=== PATIENT | male | born 1935 | race Caucasian/White ===

== ENCOUNTER 2016-07-25 11:43 | Emergency (ER) | payer MEDICARE, BC ==
[2016-07-25 12:22] LABS: Hematocrit 40.7 % (42.0-52.0); Hemoglobin 13.4 gm/dL (13.5-18.0); Mean Cell Volume 88.3 fl (78-100); Mean Corpuscular Hemoglobin 29.1 pg (27-31); Mean Corpuscular Hgb Conc 32.9 g/dl (32-36); Mean Platelet Volume 10.9 fl (6.0-9.5); Neutrophil # 7.2 K/mm3 (1.3-6.0); Neutrophil % 70.8 % (42-75.0); Platelet Count 196 K/mm3 (150-450); Red Blood Count 4.61 M/mm3 (4.7-6.0); Red Cell Distribution Width 14.8 % (11.5-14.0); White Blood Count 10.1 K/mm3 (4.0-10.5)
[2016-07-25 12:42] LABS: ALT 16 U/L (19-67); AST 16 U/L (0-48); Albumin * 3.3 gm/dl (3.4-5.0); Alkaline Phosphatase * 84 U/L (50-170); Anion Gap 13.7 mmol/L (6.8-13.8); BNP * 645 pg/mL (5-650); Bilirubin, Total 0.7 mg/dL (0.0-1.1); Blood Urea Nitrogen 20 mg/dL (6-23); Ca. Corrected For Albumin 9.1 mg/dL (8.4-10.2); Calcium * 8.9 mg/dL (7.9-10.9); Carbon Dioxide 26.3 mmol/L (24-32.6); Chloride 101 mmol/L (97-106); Glucose * 110 mg/dL (70-110); Sodium 137 mmol/L (132-142)
--- NOTE | 2016-07-25 13:45 | ERNOTE ---
Date of Service: 07/25/16 Time Seen by Provider: 07/25/16 13:43 Stated Complaint: CONGESTION Presenting Symptoms:: cough Source: patient, RN notes reviewed, past records Exam Limitations: no limitations Immunizations: IMMUNIZATION HX Immunizations Up to Date Yes History of Influenza Vaccine More Information Required Allergies/Adverse Reactions: Allergies No Known Allergies Allergy (Unverified 07/25/16 11:56) Home Medications: HOME MEDICATIONS Azithromycin [Zithromax] 250 mg PO DAILY #4 tablet 07/25/16 [Last Taken Unknown] - History of Present Ilness Narrative: Jaquan is a 81-year-old male ambulatory to the emergency department for a cough that began 2 days ago. He reports feeling "congested." She was seen by his primary care provider approximately a month ago for a cough as well. He was prescribed Flonase for allergies at that time and reports that his symptoms improved. He denies shortness of breath. He states he feels like he needs to cough something up, but his cough has been nonproductive Frequency/Possible Cause: Reports: unknown cause Associated Symptoms: Reports: cough, nasal congestion, earache, headache. Denies: chest pain/soreness, shortness of breath, wheezing, facial pain, nasal drainage, dizziness, lightheadedness, sore throat, muscle aches, fever/chills Review of Systems - Review of Systems Constitutional: Present: fatigue, malaise. Absent: fever, chills EYE: Present: no symptoms reported ENT: Present: ear pain, nose congestion. Absent: nasal drainage, sore throat Respiratory: Present: cough. Absent: shortness of breath, orthopnea, wheezing Cardiology: Absent: chest pain, palpitations, edema Gastrointestinal/Abdominal: Absent: nausea, abdominal pain Genitourinary: Present: no symptoms reported Musculoskeletal: Absent: muscle pain, neck pain Skin: Absent: rash, lesions Neurological: Present: headache. Absent: dizziness/light-headedness, weakness Endocrine: Present: no symptoms reported Hematologic/Lymphatic: Present: no symptoms reported Psych: Present: no symptoms reported - Patient's Past Medical History Patient History - Medical: Osteoarthritis Patient History - Cardiac/Respiratory: CVA/Stroke, Hypertension, Pneumonia Patient History - Cancer: No Hx of Cancer Patient History - Surgical Procedures: Appendectomy, Coronary Bypass Surgery Patient History - Other: None - Social History Living Situations: home Psych History: No pertinent hx Smoking Status: Former smoker Have you smoked in the past 12 months: No Patient requests Smoking Cessation Consult: No Initiate information on Smoking Cessation: No Alcohol Use: none Drug Use: none - Immunizations Immunizations Up to Date: Yes History of Influenza Vaccine: More Information Required to Determine Physical Exam - Physical Exam General Appearance: Present: wd/wn, alert, no apparent distress, obese Ears, Nose, Throat: Present: abnormal TM (R), abnormal TM (L), nasal congestion , normal pharynx, other - mild inflammation of bilateral TM's, no purulent middle ear fluid present. Absent: sinus pain/drainage Neck: Present: normal inspection, nontender, supple Respiratory: Present: no respiratory distress, no accessory muscle use, rales - left base Cardiovascular/Chest: Present: regular rate, rhythm, no murmur Extremity Exam: Present: non-tender, normal range of motion, pedal edema - mild , left leg, patient states is chronic Neurological Exam: Present: alert, oriented, normal mood/affect, no motor/ sensory deficits Skin Exam: Present: normal color, warm/dry ED Progress - Results and Orders Patient's Lab Results:: I have reviewed the patient's lab results. - Vital Signs Patient's Vital Signs:: I have reviewed the patient's vital signs. Vital Signs: Vital Signs 07/25/16 07/25/16 11:48 13:06 Temperature 36.7 C 37.2 C Pulse Rate 79 75 Respiratory 22 H 18 Rate Blood Pressure 150/72 144/56 O2 Sat by Pulse 93 91 Oximetry - X-Ray X-Ray #1 X-Ray: chest Interpretation: Reviewed by me X-ray Comments: Chest PA Lateral * Hyperinflated lung volumes. Pulmonary infiltrates suggested in the left lower lobe. There is a questionable nodular opacity measuring 14 mm in greatest dimension just lateral to the left cardiac silhouette, which may be a part of the left lower lobe process but could also represent a separate nodule. There is a trace amount of left-sided pleural effusion. No definable pneumothorax. Mild cardiomegaly, stable. Vascular calcification seen projecting over the aorta, stable. Trachea is in normal position. Bones show degenerative changes of the spine. Median sternotomy wires are present. IMPRESSION: 1. Left lower lobe pulmonary infiltrate suggested. Trace left-sided pleural effusion. Correlate clinically for pneumonia. Recommend follow- up in 6-8 weeks to document resolution. 2. Questionable separate nodular opacity just lateral to the left cardiac silhouette. Probably related to the left lower lobe pulmonary process, however potential new separate nodule is also possible. Again , recommend short-term follow-up to see if this finding persists. Chest CT can also be considered, on a routine basis, to better evaluate this nodular finding. Electronically signed by Malika Castellano M.D.. - Progress/Reassessment Chief Complaint: Cough Progress:: Unchanged Departure - Departure Clinical Impression: Pneumonia of lower lobe of lung Qualifiers: Pneumonia type: due to unspecified organism Laterality: left Qualified Code(s) : J18.1 - Lobar pneumonia, unspecified organism Disposition: Home self-care Condition: Stable Instructions: Community-Acquired Pneumonia, Adult, [id number] Additional Instructions: Continue your routine medications Take antibiotic daily starting tomorrow Recheck with Dr. Wilde next week, return to ER if symptoms worsen Referrals: Linnette Wilde DO [Staff Physician] - Prescriptions: Azithromycin [Zithromax] 250 mg PO DAILY #4 tablet
[2016-07-25 13:48] LABS: Troponin I Less than 0.017 ng/ml (0.00-0.10)
[2016-07-25] MEDS ORDERED: AZITHROMYCIN 250 MG TABLET PO ONE (13:55)
[2016-07-25] MEDS ORDERED: AZITHROMYCIN 250 MG TABLET ONE (14:02)
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
[2016-07-25 14:52] VITALS: BP 149/66
== END 2016-07-25 14:55 | disposition home or self-care (01) ==
LOC: ER 11:43
DX: J18.1 Lobar pneumonia, unspecified organism (principal); Z87.891 Personal history of nicotine dependence

== ENCOUNTER 2016-12-10 08:49 | Emergency (ER) | payer MEDICARE, BC ==
[2016-12-10 09:23] VITALS: BP 142/70
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
== END 2016-12-10 09:34 | disposition home or self-care (01) ==
LOC: SUPCPDRO 08:49 → ER 08:49
DX: J40 Bronchitis, not specified as acute or chronic (principal); V49.49XA Driver injured in collision with other motor vehicles in traffic accident, initial encounter; Y92.410 Unspecified street and highway as the place of occurrence of the external cause; M19.90 Unspecified osteoarthritis, unspecified site; Z86.73 Personal history of transient ischemic attack (TIA), and cerebral infarction without residual deficits; I10 Essential (primary) hypertension

== ENCOUNTER 2017-04-07 09:46 | Emergency (ER) | payer MEDICARE, BC ==
[2017-04-07 09:57] VITALS: BP 161/74
--- NOTE | 2017-04-07 10:53 | ERNOTE ---
Date of Service: 04/07/17 Time Seen by Provider: 04/07/17 10:43 Stated Complaint: COLD Presenting Symptoms:: cough Source: patient Exam Limitations: no limitations Immunizations: IMMUNIZATION HX Immunizations Up to Date Yes History of Influenza Vaccine Yes Hx Pneumococcal Vaccination Yes Allergies/Adverse Reactions: Allergies aspirin Allergy (Verified 04/07/17 09:57) Home Medications: HOME MEDICATIONS Atenolol [Tenormin] 25 mg PO DAILY 12/10/16 [Last Taken Unknown] Etodolac [Lodine] 400 mg PO BID 12/10/16 [Last Taken Unknown] Ezetimibe [Zetia] 10 mg PO DAILY 12/10/16 [Last Taken Unknown] Levothyroxine Sodium [Synthroid] 75 mcg PO DAILY 12/10/16 [Last Taken Unknown] Doxycycline Hyclate [Vibratab] 100 mg PO BID #20 tab 04/07/17 [Last Taken Unknown] Fluticasone Propionate [Flonase] 1 spray NS BID #1 inhaler 04/07/17 [Last Taken Unknown] - History of Present Ilness Narrative: Pt. comes in with c/o two day history of increased cough, malaise, sinus congestion, and rhinorrhea. Pt. denies any SOB, CP, NVD, fever, alleviating factors, aggravating factors or prehospital treatment. Timing: getting worse Severity: mild Frequency/Possible Cause: Reports: no prior episodes Modifying Factors - Improves: Reports: nothing Modifying Factors - Worsens: Reports: nothing Associated Symptoms: Reports: cough, nasal congestion, nasal drainage. Denies: chest pain/soreness, shortness of breath, facial pain, lightheadedness, earache , headache, sore throat, muscle aches, fever/chills Review of Systems - Review of Systems Constitutional: Present: malaise. Absent: fever, chills, weakness, fatigue EYE: Present: no symptoms reported ENT: Present: nose congestion, nasal drainage, sore throat Respiratory: Present: cough. Absent: shortness of breath, wheezing Cardiology: Present: no symptoms reported. Absent: chest pain, palpitations, edema Gastrointestinal/Abdominal: Present: no symptoms reported. Absent: nausea, vomiting, diarrhea, abdominal pain Genitourinary: Present: no symptoms reported. Absent: frequency, decreased urinary output Musculoskeletal: Present: no symptoms reported. Absent: back pain, joint pain Skin: Present: no symptoms reported. Absent: rash, change in hair/nails Neurological: Present: no symptoms reported. Absent: headache, dizziness/light- headedness, numbness, tingling All Other Systems: All systems neg except as marked - Patient's Past Medical History Patient History - Medical: Osteoarthritis Patient History - Cardiac/Respiratory: CVA/Stroke, Hypertension, Pneumonia Patient History - Cancer: No Hx of Cancer Patient History - Surgical Procedures: Appendectomy, Coronary Bypass Surgery Patient History - Other: None - Social History Living Situations: home Psych History: No pertinent hx Smoking Status: Former smoker Alcohol Use: none Drug Use: none - Immunizations Immunizations Up to Date: Yes Hx Pneumococcal Vaccination: Yes History of Influenza Vaccine: Yes Physical Exam - Physical Exam General Appearance: Present: wd/wn, alert, no apparent distress Head Exam: Present: normal inspection, no evidence of injury, no tenderness w palpation Eye Exam: Normal inspection: bilateral Ears, Nose, Throat: Present: nasal congestion, sinus pain/drainage - frontal and maxillary. Absent: abnormal TM (R), abnormal TM (L), pharyngeal erythema Neck: Present: normal inspection, nontender, supple, full range of motion. Absent: lymphadenopathy (R), lymphadenopathy (L) Respiratory: Present: no respiratory distress, normal breath sounds, no accessory muscle use, chest nontender, lungs clear Cardiovascular/Chest: Present: regular rate, rhythm, no murmur, normal peripheral pulses Gastrointestinal/Abdominal: Present: normal bowel sounds, nontender, nondistended, soft, no organomegaly Back Exam: Present: normal inspection, normal range of motion, no CVA tenderness , no vertebral tenderness Extremity Exam: Present: normal inspection, non-tender, normal range of motion, no edema Neurological Exam: Present: alert, oriented, normal mood/affect, no motor/ sensory deficits, 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 Absent: pallor, skin rash ED Progress - Date and Time Seen: Date and Time: 04/07/17 11:35 Pt. with chronic cough per pt. and with previous smoking history and cannot completely rule out pneumonia but feel that it is likely bronchitis since the illness has only lasted for 2 days, so will treat empirically with abx that will treat pt sinusitis and a pneumonia should that be the case as well. - Results and Orders Patient's Lab Results:: I have reviewed the patient's lab results. - Vital Signs Patient's Vital Signs:: I have reviewed the patient's vital signs. Vital Signs: Vital Signs 04/07/17 09:52 Temperature 36.1 C L Pulse Rate 62 Respiratory 16 Rate Blood Pressure 161/74 O2 Sat by Pulse 93 Oximetry - X-Ray X-Ray #1 X-Ray: chest Interpretation: Reviewed by me X-ray Comments: Chest PA Lateral * Hypoinflated lung volumes. No definite definable consolidation. Increased markings are seen at the left lower lobe retrocardiac region. No significant vascular congestion suggested. No pneumothorax or pleural fluid collections. Moderate enlargement of the cardiac silhouette noted. Moderate tortuosity of the thoracic aorta noted, with overlying atherosclerotic vascular calcifications. Trachea is in normal position. Bones show degenerative changes of the spine. Median sternotomy wires are present. IMPRESSION: 1. Left lower retrocardiac opacity could represent atelectasis versus scar versus early pulmonary infiltrate. Correlate clinically for pneumonia. Consider follow-up. 2. Additional comments are as above. Electronically signed by Malika Castellano M.D.. - Progress/Reassessment Chief Complaint: Upper Respiratory Symptoms Progress:: Unchanged Departure Clinical Impression: Bronchitis Sinusitis Qualifiers: Sinusitis location: maxillary Chronicity: acute Recurrence: non-recurrent Qualified Code(s): J01.00 - Acute maxillary sinusitis, unspecified - Departure Disposition: Home self-care Condition: Good Instructions: Sinusitis, Adult, [id number], Acute Bronchitis Additional Instructions: Please follow up with primary provider in 2-3 days if not improved Prescriptions: Doxycycline Hyclate [Vibratab] 100 mg PO BID #20 tab Fluticasone Propionate [Flonase] 1 spray NS BID #1 inhaler
== END 2017-04-07 10:57 | disposition home or self-care (01) ==
LOC: ER 09:46
DX: Z87.891 Personal history of nicotine dependence; I10 Essential (primary) hypertension; J40 Bronchitis, not specified as acute or chronic; J01.00 Acute maxillary sinusitis, unspecified; M19.90 Unspecified osteoarthritis, unspecified site

== ENCOUNTER 2018-12-15 16:32 | Inpatient (IN) ==
--- NOTE | 2018-12-15 17:07 | ERNOTE ---
Medical Problem HPI - General Chief Complaint: General Assessment Time Seen by Provider: 12/15/18 16:53 Source: patient, family Exam Limitations: no limitations - Immun/Allergies/Home Medications Immunizations: IMMUNIZATION HX Immunizations Up to Date Yes History of Influenza Vaccine Yes Hx Pneumococcal Vaccination Yes Allergies/Adverse Reactions: Allergies aspirin Allergy (Mild, Verified 01/29/18 17:55) increased fever, comatose only to large doses of aspirin. Can tolerate a baby aspirin. Home Medications: HOME MEDICATIONS Aspirin [Aspirin EC] 81 mg PO HS 06/20/17 [Last Taken 06/19/17 19:00] Etodolac [Lodine] 500 mg PO BID 06/20/17 [Last Taken 06/20/17 07:00] Ezetimibe [Zetia] 10 mg PO HS 06/20/17 [Last Taken 06/19/17 19:00] Fluticasone Propionate [Flonase] 2 spray NS DAILY 06/20/17 [Last Taken Unknown] Levothyroxine Sodium [Synthroid] 75 mcg PO DAILY 06/20/17 [Last Taken 06/20/17 07:00] Metoprolol Succinate [Toprol Xl] 100 mg PO BID 06/20/17 [Last Taken 06/20/17 07:00] - History of Present History Narrative: Patient presents with approximately 1 week of cough, congestion and general malaise. Family states she has not been eating much solid over that time. He appears to be slowly getting worse. Timing: constant, getting worse Severity: moderate Review of Systems - Review of Systems Constitutional: Present: See HPI EYE: Present: no symptoms reported ENT: Present: no symptoms reported Respiratory: Present: See HPI Cardiology: Present: palpitations Gastrointestinal/Abdominal: Present: no symptoms reported Genitourinary: Present: no symptoms reported Musculoskeletal: Present: no symptoms reported Skin: Present: no symptoms reported Neurological: Present: no symptoms reported Endocrine: Present: no symptoms reported Hematologic/Lymphatic: Present: no symptoms reported Psych: Present: no symptoms reported Medical History (Updated 12/15/18 @ 18:27 by Thomas Abreu DO) TBI (traumatic brain injury) (Acute) Onset Date: ~2011 w/brain bleed/hemorrhage in 2011 (uncertain if cerebral vs epidural vs subdural vs subarachnoid. Persistent memory problems. 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 4 Rotator cuff syndrome of right shoulder Onset Date: Unknown Shoulder pain, right Onset Date: ~2005 Right shoulder impingement with possible partial rotator cuff tear Trigger finger (acquired) Onset Date: ~2006 Left middle finger Surgical History: Surgical History (Updated 11/19/17 @ 07:07 by Courtney Sargent) Bypass Onset Date: ~1980 [facility] Hx of appendectomy Onset Date: ~1951 Hx of colonoscopy Onset Date: ~2011 WNL at [facility] Family History: Family History (Updated 11/19/17 @ 07:08 by Courtney Sargent) Father CVA (cerebral vascular accident) Glaucoma Social History: (Last Updated 11/19/17 @ 07:10 by Courtney Sargent) Social History: Marital status: Service: Yes Service comment: [employer] Tobacco: Smoking Status: Former smoker Tobacco: How many years used: 24 Alcohol: alcohol intake: never Substance Use: substance use type: does not use Dietary Habits: caffeine: Yes caffeine comment: Some day Physical Exam - Physical Exam General Appearance: Present: wd/wn, alert, moderate distress Head Exam: Present: normal inspection, no evidence of injury Eye Exam: Normal inspection: bilateral, PERRL: bilateral Ears, Nose, Throat: Present: normal ENT inspection, H, normal pharynx Neck: Present: normal inspection, nontender Respiratory: Present: no accessory muscle use, chest nontender, other - Coarse breath sounds heard throughout with scattered wheezing Cardiovascular/Chest: Present: normal peripheral pulses, tachycardia, irregularly irregular Gastrointestinal/Abdominal: Present: normal bowel sounds, nontender, nondistended, soft, no organomegaly Rectal Exam: Present: deferred Male Genitals Exam: Present: deferred Back Exam: Present: normal inspection, normal range of motion Extremity Exam: Present: normal inspection, non-tender, no edema, normal range of motion Neurological Exam: Present: alert, oriented, normal mood/affect Skin Exam: Present: normal color, warm/dry Lymphatic Exam: Present: no adenopathy Progress - Results and Orders Patient's Lab Results:: I have reviewed the patient's lab results. - Vital Signs Patient's Vital Signs:: I have reviewed the patient's vital signs. Vital Signs: Vital Signs 12/15/18 16:33 Temperature 37.8 C Pulse Rate 119 H Respiratory Rate 32 H Blood Pressure 118/72 O2 Sat by Pulse Oximetry 88 L - EKG EKG #1 EKG: atrial fibrillation EKG read: Reviewed by me - X-Ray X-Ray #1 X-Ray: chest Interpretation: Reviewed by me - CT/Ultrasound CT/Ultrasound Narrative: CT of the head reviewed by me - Progress/Reassessment Chief Complaint: General Assessment Plan - Plan Plan: Patient be admitted to a medical monitored bed. We will attempt to control the heart rate and do very cautious diuresis. He will likely get an echocardiogram tomorrow and we await the lactate and the procalcitonin to see whether need to add antibiotics. Departure Clinical Impression: Atrial fibrillation with rapid ventricular response Congestive heart failure (CHF) Qualifiers: Heart failure type: unspecified Heart failure chronicity: acute Qualified Code(s): I50.9 - Heart failure, unspecified COPD (chronic obstructive pulmonary disease) Qualifiers: COPD type: unspecified COPD Qualified Code(s): J44.9 - Chronic obstructive pulmonary disease, unspecified - Departure Disposition: Still a patient Condition: Fair Critical Care Time - Critical Care Critical Time Spent:: Yes Total time (mins) Spent:: 35 Critical Care: Patient appears to be in congestive heart failure with atrial fibrillation and rapid ventricular response. As his blood pressure is borderline we will try digoxin on him and will give him some very cautious Lasix. As he does have a very low-grade underlying fever I discussed the case with Dr. Melo and were going to add on lactate and procalcitonin. Patient be admitted to a telemetry bed.
[2018-12-15 17:22] LABS: Hematocrit 33.7 % (42.0-52.0); Hemoglobin 9.8 gm/dL (13.5-18.0); Mean Cell Volume 85.8 fl (78-100); Mean Corpuscular Hemoglobin 24.9 pg (27-31); Mean Corpuscular Hgb Conc 29.1 g/dl (32-36); Mean Platelet Volume 10.2 fl (8-11.3); Platelet Count 392 K/mm3 (150-450); Red Blood Count 3.93 M/mm3 (4.7-6.0); Red Cell Distribution Width 18.7 % (11.5-14.0); White Blood Count 13.1 K/mm3 (4.0-10.5)
[2018-12-15 17:24] LABS: Total Cells Counted 100
[2018-12-15 17:37] LABS: Eosinophil 1 % (0-3); Lymphocyte 11 % (20-51); Monocyte 9 % (0-9); Neutrophil 79 % (42-75); Neutrophil # 10.3 K/mm3 (1.3-6.0); Platelet Estimate Increased (NORMAL)
[2018-12-15 17:38] LABS: Hypochromia Trace; Target Cells Trace
[2018-12-15 17:39] LABS: Ovalocytes Trace
[2018-12-15 17:40] LABS: ALT 25 U/L (19-67); AST 38 U/L (0-48); Albumin * 2.3 gm/dl (3.4-5.0); Alkaline Phosphatase * 97 U/L (50-170); Anion Gap 8.5 mmol/L (6.8-13.8); BNP * 4712 pg/mL (5-650); Bilirubin, Total 0.3 mg/dL (0.0-1.1); Blood Urea Nitrogen 19 mg/dL (6-23); Ca. Corrected For Albumin 9.9 mg/dL (8.4-10.2); Calcium * 8.9 mg/dL (7.9-10.9); Carbon Dioxide 30.8 mmol/L (24-32.6); Chloride 101 mmol/L (97-106); Glucose * 120 mg/dL (70-110); Magnesium 1.9 mg/dL (1.2-2.8); Potassium 4.3 mmol/L (3.4-4.6); Sodium 136 mmol/L (132-142); Total Protein 8.4 gm/dL (6.2-8.2)
[2018-12-15 17:41] LABS: Troponin I Less than 0.017 ng/mL (0.00-0.10)
[2018-12-15] MEDS ORDERED: DIGOXIN 0.25 MG/ML AMPUL IV ONE (17:54)
[2018-12-15] MEDS ORDERED: FUROSEMIDE 10 MG/ML VIAL IV ONE (18:09)
[2018-12-15 18:57] LABS: Urine Bilirubin Negative (NEGATIVE); Urine Blood 25 /ul (NEGATIVE); Urine Ketone Negative (NEGATIVE); Urine Nitrite Negative (NEGATIVE); Urine Protein 100 mg/dL (NEGATIVE); Urine Urobilinogen Normal (NORMAL)
[2018-12-15 19:10] LABS: Urine Appearance Clear (CLEAR); Urine Bacteria 1+; Urine Color Yellow; Urine Hyaline Cast TRACE /LPF; Urine RBC TRACE /hpf (0-5); Urine WBC TRACE /hpf (0-5)
--- NOTE | 2018-12-15 20:51 | HP ---
Chief Complaint - Chief Complaint Date of Service: 12/15/18 Time of Service: 19:30 Chief Complaint: shortness of breath History of Present Illness: Patient with PMHx of COPD, irregular heart rate, CAD S/P open heart surgery presents with approximately 10 days of shortness of breath. He was reluctant to go to the hospital, but his family convinced him to go today. He does not currently have a PCP, but [facility] His SOB progressively got worse to where his po intake decreased. He had been coughing, but that's no longer present. He denies CP, abdominal pain. He has left lower extremity swelling that's been present since arterial grafting with his heart surgery. Family states he was previously on lasix, but that had been stopped. In the ED, his BP is borderline low, and his heart rate is fluctuating between 110-135. Lactate and procalcitonin were not elevated. EKG shows afib. His chart has a diagnosis of irregular heartbeat, but not afib specifically. He does have some lower extremity swelling on exam, and bilateral rhonchi. CXR shows trace pleural effusion, and possible consolidation/atelectasis. He is currently requiring 2 L oxygen, which he states is helping his breathing. He will be admitted for diuresis and oxygen therapy. Medical History (Updated 12/15/18 @ 21:08 by Essence Melo DO) TBI (traumatic brain injury) (Acute) Onset Date: ~2011 w/brain bleed/hemorrhage in 2011 (uncertain if cerebral vs epidural vs subdural vs subarachnoid. Persistent memory problems. 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 4 Rotator cuff syndrome of right shoulder Onset Date: Unknown Shoulder pain, right Onset Date: ~2005 Right shoulder impingement with possible partial rotator cuff tear Trigger finger (acquired) Onset Date: ~2006 Left middle finger Surgical History: Surgical History (Updated 12/15/18 @ 20:51 by Essence Melo DO) Bypass Onset Date: ~[facility] Hx of appendectomy Onset Date: ~1951 Hx of colonoscopy Onset Date: ~2011 WNL at [facility] in [facility] Family History: Family History (Updated 11/19/17 @ 07:08 by Courtney Sargent) Father CVA (cerebral vascular accident) Glaucoma Social History: (Last Updated 11/19/17 @ 07:10 by Courtney Sargent) Social History: Marital status: Service: Yes Service comment: [employer] Tobacco: Smoking Status: Former smoker Tobacco: How many years used: 24 Alcohol: alcohol intake: never Substance Use: substance use type: does not use Dietary Habits: caffeine: Yes caffeine comment: Some day Review Of Systems (GEN) - Review of Systems Generalized/Overall Review: Present: Weakness. Absent: Fever Respiratory: Present: Cough, Shortness of Breath. Absent: Wheezing Cardiac: Absent: Chest Pain, Edema Abdominal: Absent: Vomiting Genitourinary: Present: No Symptoms Reported Musculoskeletal: Present: No Symptoms Reported Neurological: Present: No Symptoms Reported Skin: Present: No Symptoms Reported Immunizations: IMMUNIZATION HX Immunizations Up to Date Yes History of Influenza Vaccine Yes Hx Pneumococcal Vaccination Yes Allergies/Adverse Reactions: Allergies Allergy/AdvReac Type Severity Reaction Status Date / Time aspirin Allergy Mild increased Verified 01/29/18 17:55 fever, comatose Home Medications: HOME MEDICATIONS Aspirin [Aspirin EC] 81 mg PO HS 06/20/17 [Last Taken 06/19/17 19:00] Ezetimibe [Zetia] 10 mg PO HS 06/20/17 [Last Taken 06/19/17 19:00] Levothyroxine Sodium [Synthroid] 75 mcg PO DAILY 06/20/17 [Last Taken 06/20/17 07:00] Metoprolol Succinate [Toprol Xl] 100 mg PO BID 06/20/17 [Last Taken 06/20/17 07:00] Apixaban [Eliquis] 5 mg PO BID 12/15/18 [Last Taken Unknown] Furosemide [Lasix] 20 mg PO BID 12/15/18 [Last Taken Unknown] Exam - Exam Vital Signs: Vital Signs - Last Taken Temp 37.8 C 12/15/18 16:33 Pulse 92 12/15/18 18:22 Resp 22 H 12/15/18 18:10 BP 101/53 12/15/18 18:22 Pulse Ox 97 12/15/18 18:10 Constitutional: Present: Alert, Cooperative, Elderly Respiratory: Present: rhonchi, No wheezing, other - appears mildly tachypneic. 2L O2 via NC Cardiovascular/Chest: Present: regular rate, rhythm Abdomen: Present: Normal bowel sounds, soft, nontender Extremity: Present: lower extremity edema - left greater than right Eye contact: Present: cooperative, good eye contact Diagnostic Studies: Abnormal Lab Results 12/15/18 12/15/18 12/15/18 Range/Units 17:03 17:03 18:52 WBC 13.1 H (4.0-10.5) K/mm3 RBC 3.93 L (4.7-6.0) M/mm3 Hgb 9.8 L (13.5-18.0) gm/dL Hct 33.7 L (42.0-52.0) % MCH 24.9 L (27-31) pg MCHC 29.1 L (32-36) g/dl RDW 18.7 H (11.5-14.0) % Neutrophils % (Manual) 79 H (42-75) % Lymphocytes % (Manual) 11 L (20-51) % Neutrophils # (Manual) 10.3 H (1.3-6.0) K/mm3 Lymphocytes # (Manual) 1.4 L (1.5-3.5) k/mm3 Monocytes # (Manual) 1.2 H (0.0-1.0) k/mm3 Platelet Estimate Increased H (NORMAL) Random Glucose 120 H (70-110) mg/dL B-Natriuretic Peptide 4712 H (5-650) pg/mL Total Protein 8.4 H (6.2-8.2) gm/dL Albumin 2.3 L (3.4-5.0) gm/dl Urine Protein 100 H (NEGATIVE) mg/dL Urine Blood 25 H (NEGATIVE) /ul Urine Bacteria 1+ H (NONE) Laboratory Results WBC 13.1 K/mm3 (4.0-10.5) H 12/15/18 17:03 RBC 3.93 M/mm3 (4.7-6.0) L 12/15/18 17:03 Hgb 9.8 gm/dL (13.5-18.0) L 12/15/18 17:03 Hct 33.7 % (42.0-52.0) L 12/15/18 17:03 MCV 85.8 fl (78-100) 12/15/18 17:03 MCH 24.9 pg (27-31) L 12/15/18 17:03 MCHC 29.1 g/dl (32-36) L 12/15/18 17:03 RDW 18.7 % (11.5-14.0) H 12/15/18 17:03 Plt Count 392 K/mm3 (150-450) 12/15/18 17:03 MPV 10.2 fl (8-11.3) 12/15/18 17:03 79 % (42-75) H 12/15/18 17:03 11 % (20-51) L 12/15/18 17:03 9 % (0-9) 12/15/18 17:03 1 % (0-3) 12/15/18 17:03 10.3 K/mm3 (1.3-6.0) H 12/15/18 17:03 1.4 k/mm3 (1.5-3.5) L 12/15/18 17:03 1.2 k/mm3 (0.0-1.0) H 12/15/18 17:03 0.1 k/mm3 (0.0-0.7) 12/15/18 17:03 Increased (NORMAL) H 12/15/18 17:03 Trace 12/15/18 17:03 Trace 12/15/18 17:03 Trace 12/15/18 17:03 Sodium 136 mmol/L (132-142) 12/15/18 17:03 136 mmol/L (130-142) 12/15/18 17:03 Potassium 4.3 mmol/L (3.4-4.6) 12/15/18 17:03 Chloride 101 mmol/L (97-106) 12/15/18 17:03 Carbon Dioxide 30.8 mmol/L (24-32.6) 12/15/18 17:03 8.5 mmol/L (6.8-13.8) 12/15/18 17:03 BUN 19 mg/dL (6-23) 12/15/18 17:03 1.00 mg/dL (0.4-1.4) 12/15/18 17:03 Est GFR (Non-Af Amer) 76 mL/min (60-130) 12/15/18 17:03 19.0 (9.0-21.6) 12/15/18 17:03 120 mg/dL (70-110) H 12/15/18 17:03 1.9 mmol/L (0.4-2.0) 12/15/18 17:03 Calcium 8.9 mg/dL (7.9-10.9) 12/15/18 17:03 Calcium Adj for Albumin 9.9 mg/dL (8.4-10.2) 12/15/18 17:03 Magnesium 1.9 mg/dL (1.2-2.8) 12/15/18 17:03 0.3 mg/dL (0.0-1.1) 12/15/18 17:03 AST 38 U/L (0-48) 12/15/18 17:03 ALT 25 U/L (19-67) 12/15/18 17:03 97 U/L (50-170) 12/15/18 17:03 Less than 0.017 ng/mL (0.00-0.10) 12/15/18 17:03 B-Natriuretic Peptide 4712 pg/mL (5-650) H 12/15/18 17:03 8.4 gm/dL (6.2-8.2) H 12/15/18 17:03 2.3 gm/dl (3.4-5.0) L 12/15/18 17:03 0.17 ng/mL (0.05-0.50) 12/15/18 17:03 Yellow 12/15/18 18:52 Clear (CLEAR) 12/15/18 18:52 6.0 pH (5.0-7.0) 12/15/18 18:52 Ur Specific [place] 1.020 SP.GR. (1.005-1.030) 12/15/18 18:52 100 mg/dL (NEGATIVE) H 12/15/18 18:52 Negative mg/dL (NEGATIVE) 12/15/18 18:52 Negative mg/dL (NEGATIVE) 12/15/18 18:52 25 /ul (NEGATIVE) H 12/15/18 18:52 Negative (NEGATIVE) 12/15/18 18:52 Negative mg/dl (NEGATIVE) 12/15/18 18:52 Prot Sulfosalicylic Acd 1+ mg/dL (0) 12/15/18 18:52 Normal EU/dl (NORMAL) 12/15/18 18:52 Ur Leukocyte Esterase Negative /ul (NEGATIVE) 12/15/18 18:52 Trace /hpf (0-5) 12/15/18 18:52 Trace /hpf (0-5) 12/15/18 18:52 Ur Epithelial Cells 0-5 /hpf (0-5) 12/15/18 18:52 1+ (NONE) H 12/15/18 18:52 Hyaline Casts Trace /LPF (NONE) 12/15/18 18:52 No culture indicated 12/15/18 18:52 Mycoplasma pneumon IgM Non reactive (NonReactive) 12/15/18 17:03 Assessment/Plan - Assessment/Plan (1) Shortness of breath Assessment: Differential includes heart failure exacerbation, COPD exacerbation, pneumonia, cardiac source. Echo from 2016 showed mitral regurgitation, pulmonary hypertension, diastolic dysfunction, LVH, making cardiac source a strong possibility. Will repeat echo to see if these have progressed. COPDe less likely, as he is not wheezing on exam. His lung davis were hypoventilated on his CXR, so will need to verify if this diagnosis is accurate. He was unaware of this diagnosis. He does have a pleural effusion and lower extremity edema, so will continue diuresis with lasix. He has been given 20 mg IV lasix, and will repeat this in the morning. He does not currently have a PCP, so unsure if he has been getting his medications. Troponins have been negative. Will also repeat EKG. Procalcitonin negative, making pneumonia unlikely, and antibiotics not needed. He has started coughing since arriving on the floor, and will add breathing treatments to see if that will help. Problem: Acute (2) Atrial fibrillation with rapid ventricular response Assessment: Heart rate will increase at times to greater than 130, but seems to have improved with the digoxin. HR is currently in the 90's. Will diurese him, and his heart rate may improve with the diuresis. Continue metoprolol that's on his home med list. Problem: Acute (3) Hypothyroidism Problem: Chronic (4) CAD (coronary artery disease) Problem: Chronic (5) Benign essential HTN Assessment: HTN listed on his problem list, but the only medication that could potentially be for BP is metoprolol. His BP is currently a bit low. Will continue the metoprolol for heart rate control. Problem: Chronic (6) Pulmonary hypertension Problem: Chronic (7) Diastolic dysfunction without heart failure Problem: Chronic (8) Hypoalbuminemia Problem: Acute
[2018-12-15] MEDS ORDERED: FLU VACC QS2019-20(6MOS UP)/PF 60 MCG/0.5 ML SYRINGE IM ONE (20:58)
[2018-12-15] MEDS ORDERED: ALBUTEROL SULFATE 2.5 MG/0.5 ML VIAL.NEB IH ONE (21:27)
[2018-12-15] MEDS: ALBUTEROL SULFATE/IPRATROPIUM 3 ML NEBU IH PRN (21:31)
[2018-12-15] MEDS ORDERED: ENOXAPARIN SODIUM 40 MG/0.4 ML SYRG SC SCH (21:45)
[2018-12-15] MEDS ORDERED: METOPROLOL SUCCINATE 50 MG TABLET.SA PO ONE (22:16)
[2018-12-15] MEDS: METOPROLOL SUCCINATE 100 MG TABLET.SA PO SCH (22:18)
[2018-12-15] MEDS: APIXABAN 5 MG TABLET PO SCH ×2 (22:19→22:27)
[2018-12-16] MEDS: LEVOTHYROXINE SODIUM 75 MCG TABLET PO SCH (07:48)
--- NOTE | 2018-12-16 08:50 | PN ---
Subjective - Date and Time Seen Date: 12/16/18 Time: 08:48 Subjective Narrative: Patient feels like his breathing is gotten better since last night. He has not eaten anything yet this morning. He is urinating, but has not yet had a bowel movement. Objective - Review of Systems Generalized/Overall Review: Denies: Fever Respiratory: Reports: Shortness of Breath. Denies: Cough Cardiac: Denies: Chest Pain, Edema Abdominal: Denies: Nausea Genitourinary Symptoms: Reports: No Symptoms Reported Musculoskeletal Complaints: Reports: No Symptoms Reported Neurological: Reports: No Symptoms Reported Skin: Reports: No Symptoms Reported - Vitals Vitals: Last Vital Signs Temp 36.4 C 12/16/18 07:13 Pulse 92 12/16/18 07:13 Resp 20 12/16/18 07:13 BP 130/58 12/16/18 07:13 Pulse Ox 94 12/16/18 08:04 - Abnormal Lab Findings Abnormal Lab Findings: Abnormal Lab Results 12/15/18 12/15/18 12/15/18 Range/Units 17:03 17:03 18:52 WBC 13.1 H (4.0-10.5) K/mm3 RBC 3.93 L (4.7-6.0) M/mm3 Hgb 9.8 L (13.5-18.0) gm/dL Hct 33.7 L (42.0-52.0) % MCH 24.9 L (27-31) pg MCHC 29.1 L (32-36) g/dl RDW 18.7 H (11.5-14.0) % Neutrophils % (Manual) 79 H (42-75) % Lymphocytes % (Manual) 11 L (20-51) % Neutrophils # (Manual) 10.3 H (1.3-6.0) K/mm3 Lymphocytes # (Manual) 1.4 L (1.5-3.5) k/mm3 Monocytes # (Manual) 1.2 H (0.0-1.0) k/mm3 Platelet Estimate Increased H (NORMAL) Random Glucose 120 H (70-110) mg/dL B-Natriuretic Peptide 4712 H (5-650) pg/mL Total Protein 8.4 H (6.2-8.2) gm/dL Albumin 2.3 L (3.4-5.0) gm/dl Urine Protein 100 H (NEGATIVE) mg/dL Urine Blood 25 H (NEGATIVE) /ul Urine Bacteria 1+ H (NONE) - Exam Constitutional: Present: Alert, Cooperative, Elderly Respiratory: Present: decreased breath sounds - bases, other - 2L O2 via NC Cardiovascular/Chest: Present: regular rate, rhythm - afib on monitor, edema - trace bilaterally Abdomen: Present: soft. Absent: nontender Extremity: Present: lower extremity edema - trace bilaterally Eye contact: Present: good eye contact Assessment/Plan - Problems/Diagnosis (1) Shortness of breath Problem: Acute Narrative: Improving with 20 mg IV Lasix and oxygen. Echocardiogram pending. His lung sounds are more clear this morning. His shortness of breath may be due to worsening cardiac output or pulmonary hypertension. Wean oxygen as tolerated. He is still a bit tachypnic on exam, so not ready yet for DC today. If able to wean off oxygen, anticipate DC in 24-48. His WBC was slightly elevated, but procalcitonin was negative. Abx not needed. Troponin not elevated. (2) Atrial fibrillation with rapid ventricular response Problem: Resolved Narrative: His heart rate is currently controlled on home metoprolol. His chart had irregular heart rhythm, but not specifically A. fib. He is on Eliquis, and will need to verify the diagnosis for anticoagulation. If his heart rate has been uncontrolled prior to admission, this could have been the source of his shortness of breath. (3) CAD (coronary artery disease) Problem: Chronic Narrative: Status post remote heart surgery. Continue home aspirin and ezetimibe. (4) Hypothyroidism Problem: Chronic (5) Benign essential HTN Problem: Chronic Narrative: The only potential blood pressure medication he is on his metoprolol, and will continue. His blood pressure is a bit higher than yesterday with 130s over 70s. (6) Pulmonary hypertension Problem: Chronic (7) Diastolic dysfunction without heart failure Problem: Chronic (8) Hypoalbuminemia Problem: Acute
[2018-12-16] MEDS ORDERED: FLU VACC QS2019-20(6MOS UP)/PF 60 MCG/0.5 ML SYRINGE IM ONE (09:00)
[2018-12-16] MEDS: APIXABAN 5 MG TABLET PO SCH ×2 (09:53→21:00)
[2018-12-16] MEDS: METOPROLOL SUCCINATE 100 MG TABLET.SA PO SCH ×2 (09:54→20:59)
[2018-12-16] MEDS: FUROSEMIDE 10 MG/ML VIAL IV SCH (10:02)
[2018-12-16] MEDS: ASPIRIN 81 MG TABLET.DR PO SCH (20:59)
[2018-12-16] MEDS: OXYBUTYNIN CHLORIDE 5 MG TABLET PO SCH (20:59)
[2018-12-16] MEDS: EZETIMIBE 10 MG TABLET PO SCH (21:00)
[2018-12-17] MEDS: LEVOTHYROXINE SODIUM 75 MCG TABLET PO SCH (07:17)
[2018-12-17] MEDS ORDERED: ACETAMINOPHEN 325 MG TABLET PO PRN (07:46)
[2018-12-17 09:03] LABS: Hematocrit 34.2 % (42.0-52.0); Hemoglobin 9.8 gm/dL (13.5-18.0); Mean Cell Volume 84.4 fl (78-100); Mean Corpuscular Hemoglobin 24.2 pg (27-31); Mean Corpuscular Hgb Conc 28.7 g/dl (32-36); Mean Platelet Volume 10.9 fl (8-11.3); Platelet Count 474 K/mm3 (150-450); Red Blood Count 4.05 M/mm3 (4.7-6.0); Red Cell Distribution Width 18.2 % (11.5-14.0); White Blood Count 14.1 K/mm3 (4.0-10.5)
[2018-12-17] MEDS: MEGESTROL ACETATE 40 MG TABLET PO SCH ×4 (09:13→20:26)
[2018-12-17] MEDS: METOPROLOL SUCCINATE 100 MG TABLET.SA PO SCH ×2 (09:14→20:26)
[2018-12-17] MEDS: APIXABAN 5 MG TABLET PO SCH ×2 (09:14→20:26)
--- NOTE | 2018-12-17 09:17 | ECHO ---
This report is available in the EMR
[2018-12-17] MEDS: FUROSEMIDE 10 MG/ML VIAL IV SCH (09:33)
[2018-12-17 10:40] LABS: Total Cells Counted 100
[2018-12-17 10:55] LABS: TSH * 1.136 uIU/mL (0.358-3.74)
[2018-12-17 10:57] LABS: CRP 12.9 mg/dL (0.0-0.9)
[2018-12-17 11:04] LABS: Atypical (Reactive) Lymph 1 % (0-2); Band 5 % (0-2.0); Lymphocyte 7 % (20-51); Monocyte 6 % (0-9); Neutrophil 81 % (42-75); Neutrophil # 11.4 K/mm3 (1.3-6.0)
[2018-12-17 11:06] LABS: Anisocytosis 2+; Microcytosis 1+
[2018-12-17 11:08] LABS: Hypochromia 2+; Ovalocytes 1+; Platelet Estimate Increased (NORMAL)
[2018-12-17 11:09] LABS: Target Cells Trace
--- NOTE | 2018-12-17 12:49 | PN ---
Subjective - Date and Time Seen Date: 12/17/18 Time: 08:00 Subjective Narrative: Patient denies current complaints. His breathing is better. He continues to have neck pain. His p.o. intake is very poor. His is extremely concerned, wanting antibiotics to be started and for medications to be given for his appetite. She is also worried about how he is not ambulating like he does at baseline. He cannot remember if he had a bowel movement, and could not remember the echo being done yesterday. His reports he has had short-term memory loss since his previous stroke. Objective - Review of Systems Generalized/Overall Review: Reports: Weakness. Denies: Fever EENTM: Reports: No Symptoms Reported Respiratory: Reports: No Symptoms Reported Cardiac: Reports: No Symptoms Reported Abdominal: Reports: No Symptoms Reported Genitourinary Symptoms: Reports: No Symptoms Reported Musculoskeletal Complaints: Reports: Neck Pain Neurological: Reports: Weakness Skin: Reports: No Symptoms Reported - Vitals Vitals: Last Vital Signs Temp 36.9 C 12/17/18 10:00 Pulse 96 12/17/18 10:00 Resp 20 12/17/18 10:00 BP 101/57 12/17/18 10:00 Pulse Ox 93 12/17/18 10:00 - Abnormal Lab Findings Abnormal Lab Findings: Abnormal Lab Results 12/17/18 12/17/18 12/17/18 Range/Units 07:55 07:55 07:55 WBC 14.1 H (4.0-10.5) K/mm3 RBC 4.05 L (4.7-6.0) M/mm3 Hgb 9.8 L (13.5-18.0) gm/dL Hct 34.2 L (42.0-52.0) % MCH 24.2 L (27-31) pg MCHC 28.7 L (32-36) g/dl RDW 18.2 H (11.5-14.0) % Plt Count 474 H (150-450) K/mm3 Immature Gran % (Auto) 0.50 H (0.001-0.429) % Immature Gran # (Auto) 0.07 H (0.000-0.0310) K/mm3 Neutrophils % 85.0 H (42-75.0) % Neutrophils % (Manual) 81 H (42-75) % Band Neuts % (Manual) 5 H (0-2.0) % Lymphocytes % 6.6 L (20-51) % Lymphocytes % (Manual) 7 L (20-51) % Neutrophils # 12.0 H (1.3-6.0) K/mm3 Neutrophils # (Manual) 11.4 H (1.3-6.0) K/mm3 Lymphocytes # 0.93 L (1.5-3.5) k/mm3 Lymphocytes # (Manual) 1.0 L (1.5-3.5) k/mm3 Monocytes # 1.1 H (0.0-1.0) k/mm3 Platelet Estimate Increased H (NORMAL) ESR 109 H (0-10) mm/hr Retic Hgb Content 18.8 L (29-35) pg C-Reactive Prot, Quant 12.9 H (0.0-0.9) mg/dL - Exam Constitutional: Present: Alert, Cooperative, No distress, Elderly Respiratory: Present: normal breath sounds, no respiratory distress Cardiovascular/Chest: Present: regular rate, rhythm Abdomen: Present: Normal bowel sounds, soft, nontender Extremity: Absent: lower extremity edema Eye contact: Present: good eye contact Assessment/Plan - Problems/Diagnosis (1) Shortness of breath Problem: Acute Narrative: He was not complaining about shortness of breath any longer, but his noted his appetite and ambulation are not baseline. His blood pressure has been borderline low. Work-up was redone today, which showed a pneumonia on the left. Rocephin has been started. We will use oxygen as needed, but he has thus far weaned to room air. Not yet ready for discharge. He does not have a primary care provider, so we will need to ensure he is quite close to his baseline before DC. (2) Atrial fibrillation with rapid ventricular response Problem: Resolved Narrative: He is rate controlled on metoprolol. Continue twice daily Eliquis. (3) CAD (coronary artery disease) Problem: Chronic (4) Hypothyroidism Problem: Chronic (5) Benign essential HTN Problem: Chronic Narrative: The only medication that could potentially be for blood pressure control is the metoprolol, which is being used for rate control. His blood pressure is borderline low, with a map around 65-70. (6) Pulmonary hypertension Problem: Chronic (7) Diastolic dysfunction without heart failure Problem: Chronic Narrative: Echo was repeated yesterday, which did not reveal significant change from previous. (8) Hypoalbuminemia Problem: Acute Narrative: Patient's p.o. intake has been poor. Continue Ensure.
--- NOTE | 2018-12-17 13:52 | PATHPSR ---
PHYSICIAN: Essence Melo DO LAB#: [id number] SPECIMEN DATE: 12/17/2018 CLINICAL INFORMATION: Patient is 83-year-old man with prior history of coronary artery disease status post open heart surgery presents for hospital admission with atrial fibrillation with rapid ventricular response, hypothyroidism, essential hypertension, pulmonary hypertension, diastolic dysfunction without failure and hypoalbuminemia. He is short of breath, mildly to moderate anemia with mild to moderate increase in WBCs. Peripheral review by pathologist is ordered for this reason. CBC: WBC 14.1 K/mm3, hemoglobin 9.8 gm/dl, hematocrit 34.2 %, MCV is 84.4 fl, MCH is 24.2 pg, MCHC is 28.7 g/dl, Platelet count 474,000. Manual differential: Neutrophils 81 %, bands 5 %, lymphocytes 7 %, monocytes 6%, atypical (reactive) lymphocytes 1 %. RED BLOOD CELLS: 2+ hypochromia, 2+ anisocytosis, 1+ microcytosis, trace target cells, 1+ ovalocytes PLATELETS: No abnormalities WHITE BLOOD CELLS: Mild to moderate leukocytosis with left shift in granulocytic series DIAGNOSIS: PERIPHERAL BLOOD SMEAR, REVIEW BY PATHOLOGIST: -MILD TO MODERATE ANEMIA WITH MICROCYTOSIS AND HYPOCHROMIA, SEE COMMENT -MILD TO MODERATE LEUKOCYTOSIS WITH LEFT SHIFT IN GRANULOCYTIC SERIES COMMENT: No recent iron studies, B12 or folate are available for review at [facility]. Decreased reticulocyte hemoglobin 18.8 pg is a feature of early iron deficiency anemia. There is also a left shift of granulocytic series with increase bands suggestive of an acute inflammatory process. No immature elements or malignancy is identified on our examination. The findings are communicated by voice and halo messaging to Dr. Melo.
[2018-12-17] MEDS: OXYBUTYNIN CHLORIDE 5 MG TABLET PO SCH (20:26)
[2018-12-17] MEDS: ASPIRIN 81 MG TABLET.DR PO SCH (20:26)
[2018-12-17] MEDS: EZETIMIBE 10 MG TABLET PO SCH (20:27)
[2018-12-17] MEDS: ALBUTEROL SULFATE/IPRATROPIUM 3 ML NEBU IH PRN (22:00)
[2018-12-17] MEDS ORDERED: METHYLPREDNISOLONE SOD SUCC/PF 125 MG/2 ML VIAL ONE (23:13)
[2018-12-17] MEDS ORDERED: METHYLPREDNISOLONE SOD SUCC/PF 40 MG/ML VIAL IV ONE (23:15)
[2018-12-18] MEDS: ALBUTEROL SULFATE/IPRATROPIUM 3 ML NEBU IH PRN ×2 (04:10→11:56)
[2018-12-18 06:00] LABS: Iron 10 mcg/dL (35-120); Transferrin Sat. (% Sat.) 6 % (15-55)
[2018-12-18 06:21] LABS: Folate 6.8 ng/mL (8.6-58.9)
[2018-12-18] MEDS: LEVOTHYROXINE SODIUM 75 MCG TABLET PO SCH (06:29)
[2018-12-18 06:52] LABS: Urine Bilirubin Negative (NEGATIVE); Urine Blood Negative /ul (NEGATIVE); Urine Ketone Negative (NEGATIVE); Urine Nitrite Negative (NEGATIVE); Urine Protein Negative (NEGATIVE); Urine Specific Gravity <=1.005 SP.GR. (1.005-1.030); Urine Urobilinogen Normal (NORMAL); Urine pH 5.5 pH (5.0-7.0)
[2018-12-18 07:04] LABS: Urine Appearance Clear (CLEAR); Urine Bacteria TRACE; Urine Color Yellow; Urine RBC None Seen /hpf (0-5); Urine WBC TRACE /hpf (0-5)
[2018-12-18 07:05] LABS: Urine Hyaline Cast TRACE /LPF
[2018-12-18] MEDS: FUROSEMIDE 10 MG/ML VIAL IV SCH (08:18)
[2018-12-18] MEDS: APIXABAN 5 MG TABLET PO SCH ×2 (08:18→21:26)
[2018-12-18] MEDS: MEGESTROL ACETATE 40 MG TABLET PO SCH ×4 (08:18→21:26)
[2018-12-18] MEDS: METOPROLOL SUCCINATE 100 MG TABLET.SA PO SCH (08:19)
[2018-12-18] MEDS ORDERED: predniSONE 20 MG TABLET PO SCH (09:00)
[2018-12-18 10:17] LABS: Hematocrit 32.9 % (42.0-52.0); Hemoglobin 9.7 gm/dL (13.5-18.0); Mean Cell Volume 84.4 fl (78-100); Mean Corpuscular Hemoglobin 24.9 pg (27-31); Mean Corpuscular Hgb Conc 29.5 g/dl (32-36); Mean Platelet Volume 10.7 fl (8-11.3); Neutrophil # 13.8 K/mm3 (1.3-6.0); Neutrophil % 94.7 % (42-75.0); Platelet Count 456 K/mm3 (150-450); Red Cell Distribution Width 18.4 % (11.5-14.0); White Blood Count 14.5 K/mm3 (4.0-10.5)
[2018-12-18] MEDS ORDERED: AZITHROMYCIN 500 MG in DEXTROSE 5 % IN WATER 250 ML IV ONE ×2 (11:08)
[2018-12-18] MEDS ORDERED: NORMAL SALINE 250 ML IV PRN (11:13)
[2018-12-18 11:39] LABS: Albumin * 1.8 gm/dl (3.4-5.0); Anion Gap 14.3 mmol/L (6.8-13.8); BUN/Creatinine Ratio 23.5 (9.0-21.6); Bilirubin, Total 0.2 mg/dL (0.0-1.1); Ca. Corrected For Albumin 10.5 mg/dL (8.4-10.2); Calcium * 9.1 mg/dL (7.9-10.9); Carbon Dioxide 29.2 mmol/L (24-32.6); Potassium 4.5 mmol/L (3.4-4.6); Total Protein 7.7 gm/dL (6.2-8.2)
--- NOTE | 2018-12-18 11:41 | PN ---
Subjective - Date and Time Seen Date: 12/18/18 Time: 09:00 Subjective Narrative: Patient feels his shortness of breath is at baseline. He has a nonproductive cough. Objective - Review of Systems Generalized/Overall Review: Denies: Fever Respiratory: Reports: Cough, Shortness of Breath Cardiac: Denies: Chest Pain Abdominal: Denies: Abdominal Pain Misc: All systems neg except as marked - Vitals Vitals: Last Vital Signs Temp 36.8 C 12/18/18 10:00 Pulse 90 12/18/18 10:00 Resp 22 H 12/18/18 10:00 BP 85/50 L 12/18/18 10:00 Pulse Ox 95 12/18/18 10:00 - Abnormal Lab Findings Abnormal Lab Findings: Abnormal Lab Results 12/18/18 12/18/18 12/18/18 Range/Units 05:40 05:40 05:40 WBC 14.5 H (4.0-10.5) K/mm3 RBC 3.90 L (4.7-6.0) M/mm3 Hgb 9.7 L (13.5-18.0) gm/dL Hct 32.9 L (42.0-52.0) % MCH 24.9 L (27-31) pg MCHC 29.5 L (32-36) g/dl RDW 18.4 H (11.5-14.0) % Plt Count 456 H (150-450) K/mm3 Immature Gran % (Auto) 0.60 H (0.001-0.429) % Immature Gran # (Auto) 0.09 H (0.000-0.0310) K/mm3 Neutrophils % 94.7 H (42-75.0) % Lymphocytes % 2.8 L (20-51) % Neutrophils # 13.8 H (1.3-6.0) K/mm3 Lymphocytes # 0.41 L (1.5-3.5) k/mm3 Iron 10 L (35-120) mcg/dL TIBC 178 L (260-445) mcg/dL Transferrin % Sat 6 L (15-55) % Folate 6.8 L (8.6-58.9) ng/mL - Exam Constitutional: Present: Alert, Cooperative, Well developed, Well nourished, No distress, Elderly ENT Exam: Present: hearing grossly normal Neck: Absent: lymphadenopathy (R), lymphadenopathy (L) Respiratory: Present: lungs clear, no accessory muscle use, No wheezing. Absent: crackles, rhonchi Cardiovascular/Chest: Present: normal peripheral pulses, regular rate, rhythm, no murmur Abdomen: Present: Normal bowel sounds, soft, nontender Extremity: Present: no pedal edema Skin Exam: Present: normal color, warm/dry Neurologic: Present: alert, normal mood/affect Appearance: Present: appropriate appearance Eye contact: Present: cooperative Thoughts: Present: normal mood /affect Assessment/Plan Plan Narrative: 83-year-old female with a past medical history of CAD, hypertension, hyperlipidemia, hypothyroidism, osteoarthritis presents with left lower lobe pneumonia. He is currently on ceftriaxone IV day 2. Plan #1 start azithromycin 500 mg x 1 dose, followed by azithromycin 250 mg daily for 4 more days. #2 continue with ceftriaxone 1000 mg daily, day 2 #3 encourage oral diet #4 continue to monitor blood pressure and give small fluid boluses as needed #5 repeat CMP and CBC in the morning #6 continue home medications for comorbidities #7 unsure why he is on prednisone 60 mg daily, doubt COPD exacerbation. He is not on prednisone chronically at home. I will stop prednisone. - Problems/Diagnosis (1) Pneumonia of lower lobe of lung Problem: Acute Qualifiers: Pneumonia type: due to group B Streptococcus Laterality: left Qualified Code(s): J15.3 - Pneumonia due to streptococcus, group B (2) Hypothyroidism Problem: Chronic Qualifiers: Hypothyroidism type: unspecified Qualified Code(s): E03.9 - Hypothyroidism, unspecified (3) CAD (coronary artery disease) Problem: Chronic (4) Benign essential HTN Problem: Chronic (5) Hypotension Problem: Acute (6) Afib Problem: Chronic Qualifiers: Atrial fibrillation type: unspecified chronic Qualified Code(s): I48.20 - Chronic atrial fibrillation, unspecified; I48.2 - Chronic atrial fibrillation (7) Poor appetite Problem: Chronic
[2018-12-18] MEDS: ASPIRIN 81 MG TABLET.DR PO SCH (21:26)
[2018-12-18] MEDS: EZETIMIBE 10 MG TABLET PO SCH (21:26)
[2018-12-18] MEDS: OXYBUTYNIN CHLORIDE 5 MG TABLET PO SCH (21:26)
[2018-12-19] MEDS: METOPROLOL SUCCINATE 100 MG TABLET.SA PO SCH ×2 (01:42→11:04)
[2018-12-19 06:21] LABS: Hematocrit 31.2 % (42.0-52.0); Hemoglobin 9.3 gm/dL (13.5-18.0); Mean Corpuscular Hemoglobin 24.7 pg (27-31); Mean Corpuscular Hgb Conc 29.8 g/dl (32-36); Mean Platelet Volume 10.4 fl (8-11.3); Neutrophil # 18.9 K/mm3 (1.3-6.0); Neutrophil % 91.5 % (42-75.0); Platelet Count 505 K/mm3 (150-450); Red Blood Count 3.76 M/mm3 (4.7-6.0); Red Cell Distribution Width 17.9 % (11.5-14.0); White Blood Count 20.7 K/mm3 (4.0-10.5)
[2018-12-19 06:44] LABS: Anion Gap 10.4 mmol/L (6.8-13.8); BUN/Creatinine Ratio 39.6 (9.0-21.6); Bilirubin, Total 0.2 mg/dL (0.0-1.1); Ca. Corrected For Albumin 10.3 mg/dL (8.4-10.2); Carbon Dioxide 30.1 mmol/L (24-32.6); Potassium 4.5 mmol/L (3.4-4.6); Total Protein 7.9 gm/dL (6.2-8.2)
[2018-12-19] MEDS: LEVOTHYROXINE SODIUM 75 MCG TABLET PO SCH (07:23)
[2018-12-19] MEDS ORDERED: AZITHROMYCIN 250 MG TABLET PO SCH (09:00)
[2018-12-19] MEDS: APIXABAN 5 MG TABLET PO SCH (09:17)
[2018-12-19] MEDS: MEGESTROL ACETATE 40 MG TABLET PO SCH ×2 (09:17→14:26)
[2018-12-19] MEDS ORDERED: FUROSEMIDE 20 MG TABLET PO SCH (11:00)
--- NOTE | 2018-12-19 12:17 | DS ---
(1) Pneumonia of lower lobe of lung Problem: Acute Qualifiers: Pneumonia type: due to group B Streptococcus Laterality: left Qualified Code(s): J15.3 - Pneumonia due to streptococcus, group B (2) Hypothyroidism Problem: Chronic Qualifiers: Hypothyroidism type: unspecified Qualified Code(s): E03.9 - Hypothyroidism, unspecified (3) CAD (coronary artery disease) Problem: Chronic (4) Benign essential HTN Problem: Chronic (5) Hypotension Problem: Acute (6) Afib Problem: Chronic Qualifiers: Atrial fibrillation type: unspecified chronic Qualified Code(s): I48.20 - Chronic atrial fibrillation, unspecified; I48.2 - Chronic atrial fibrillation (7) Poor appetite Problem: Chronic Description of Stay: 83-year-old female with a past medical history of CAD, hypertension, hyperlipidemia, hypothyroidism, osteoarthritis presents with left lower lobe pneumonia. He initially presented with shortness of breath and decreased oral intake. The etiology of the shortness of breath was initially thought to be secondary to heart failure and he was started on IV Lasix. Echocardiogram was ordered showed an EF of 55 to 60%, normal diastolic filling pattern. He continued to have symptoms of shortness of breath chest x-ray was repeated and he was found to have a new left lower lobe infiltrate. He was started on ceftriaxone and Azithromycin throughout his hospitalization his blood pressure was in the low normal range. His dose of metoprolol was held on multiple occasions. He is feeling well today. He is afebrile but is white blood cell count significantly increased today from 14 to 20.7. No bands. He had been started on prednisone 60 mg yesterday. I believe this is likely secondary to the steroids. He is ready to be discharged home. He will need a repeat CBC with his primary care physician within the next 1 to 2 weeks he will need to continue azithromycin 250 mg. Daily for 3 days and cefdinir 300 mg twice a day for 4 more days. Procedures Performed: none Results and Findings: Pending Mircobiology Results 12/17/18 14:44 Blood Blood Culture - Preliminary NO GROWTH 24 HOURS 12/17/18 13:16 Blood Blood Culture - Preliminary NO GROWTH 24 HOURS 12/15/18 17:16 Blood Blood Culture - Preliminary NO GROWTH AFTER 48 HOURS 12/15/18 17:03 Blood Blood Culture - Preliminary NO GROWTH AFTER 48 HOURS Lab Pending Results 12/15/18 17:03: WBC 13.1 H, RBC 3.93 L, Hgb 9.8 L, Hct 33.7 L, MCV 85.8, MCH 24.9 L, MCHC 29.1 L, RDW 18.7 H, Plt Count 392, MPV 10.2, Neutrophils % (Manual) 79 H, Lymphocytes % (Manual) 11 L, Monocytes % (Manual) 9, Eosinophils % (Manual) 1, Neutrophils # (Manual) 10.3 H, Lymphocytes # (Manual) 1.4 L, Monocytes # (Manual) 1.2 H, Eosinophils # (Manual) 0.1, Platelet Estimate Increased H, Hypochromasia Trace, Target Cells Trace, Ovalocytes Trace 12/15/18 17:03: Sodium 136, Plasma Sodium 136, Potassium 4.3, Chloride 101, Carbon Dioxide 30.8, Anion Gap 8.5, BUN 19, Creatinine 1.00, Est GFR (Non-Af Amer) 76, BUN/Creatinine Ratio 19.0, Random Glucose 120 H, Calcium 8.9, Calcium Adj for Albumin 9.9, Magnesium 1.9, Total Bilirubin 0.3, AST 38, ALT 25, Alkaline Phosphatase 97, Troponin I Less than 0.017, B-Natriuretic Peptide 4712 H, Total Protein 8.4 H, Albumin 2.3 L 12/15/18 17:03: Mycoplasma pneumon IgM Non reactive 12/15/18 17:03: Procalcitonin 0.17 12/15/18 17:03: Lactic Acid, Venous 1.9 12/15/18 18:52: Urine Color Yellow, Urine Appearance Clear, Urine pH 6.0, Ur Specific [place] 1.020, Urine Protein 100 H, Urine Glucose (UA) Negative, Urine Ketones Negative, Urine Blood 25 H, Urine Nitrate Negative, Urine Bilirubin Negative, Prot Sulfosalicylic Acd 1+, Urine Urobilinogen Normal, Ur Leukocyte Esterase Negative, Urine RBC Trace, Urine WBC Trace, Ur Epithelial Cells 0-5, Urine Bacteria 1+ H, Hyaline Casts Trace, Urine Culture Comments No culture indicated 12/15/18 23:00: Troponin I Less than 0.017 12/17/18 07:55: WBC 14.1 H, RBC 4.05 L, Hgb 9.8 L, Hct 34.2 L, MCV 84.4, MCH 24.2 L, MCHC 28.7 L, RDW 18.2 H, Plt Count 474 H, MPV 10.9, Immature Gran % (Auto) 0.50 H, Immature Gran # (Auto) 0.07 H, Neutrophils % 85.0 H, Neutrophils % (Manual) 81 H, Band Neuts % (Manual) 5 H, Lymphocytes % 6.6 L, Lymphocytes % (Manual) 7 L, Monocytes % 7.5, Monocytes % (Manual) 6, Eosinophils % 0.3, Basophils % 0.1, Nucleated RBC % 0.0, Neutrophils # 12.0 H, Neutrophils # (Manual) 11.4 H, Lymphocytes # 0.93 L, Lymphocytes # (Manual) 1.0 L, Monocytes # 1.1 H, Monocytes # (Manual) 0.8, Eosinophils # 0.0, Absolute Basophils 0.0, Atypic/Reactive Lymphs 1, Platelet Estimate Increased H, Hypochromasia 2+, Anisocytosis 2+, Microcytosis 1+, Target Cells Trace, Ovalocytes 1+, Absolute Retic 0.0219, Percent Retic 0.6, Immature Retic Fraction 11.0, Retic Hgb Content 18.8 L 12/17/18 07:55: C-Reactive Prot, Quant 12.9 H, TSH 1.136 12/17/18 07:55: ESR 109 H 12/17/18 07:55: Procalcitonin 0.24 12/17/18 07:55: Peripheral Blood Smear Smear sent to path. 12/18/18 05:30: Sodium 136, Plasma Sodium 137, Potassium 4.5, Chloride 97, Carbon Dioxide 29.2, Anion Gap 14.3 H, BUN 24 H, Creatinine 1.02, Est GFR (Non- Af Amer) 75, BUN/Creatinine Ratio 23.5 H, Random Glucose 169 H D, Calcium 9.1, Calcium Adj for Albumin 10.5 H, Total Bilirubin 0.2, AST 28, ALT 19, Alkaline Phosphatase 86, Total Protein 7.7, Albumin 1.8 L 12/18/18 05:40: Vitamin B12 578, Folate 6.8 L 12/18/18 05:40: Iron 10 L, TIBC 178 L, Transferrin % Sat 6 L 12/18/18 05:40: WBC 14.5 H, RBC 3.90 L, Hgb 9.7 L, Hct 32.9 L, MCV 84.4, MCH 24.9 L, MCHC 29.5 L, RDW 18.4 H, Plt Count 456 H, MPV 10.7, Immature Gran % (Auto) 0.60 H, Immature Gran # (Auto) 0.09 H, Neutrophils % 94.7 H, Lymphocytes % 2.8 L, Monocytes % 1.8, Eosinophils % 0.0, Basophils % 0.1, Nucleated RBC % 0.0, Neutrophils # 13.8 H, Lymphocytes # 0.41 L, Monocytes # 0.3, Eosinophils # 0.0, Absolute Basophils 0.0 12/18/18 06:40: Urine Color Yellow, Urine Appearance Clear, Urine pH 5.5, Ur Specific [place] <=1.005, Urine Protein Negative, Urine Glucose (UA) Negative, Urine Ketones Negative, Urine Blood Negative, Urine Nitrate Negative, Urine Bilirubin Negative, Urine Urobilinogen Normal, Ur Leukocyte Esterase Negative, Urine RBC None seen, Urine WBC Trace, Ur Epithelial Cells 0-5, Urine Bacteria Trace, Hyaline Casts Trace 12/19/18 05:50: WBC 20.7 H D, RBC 3.76 L, Hgb 9.3 L, Hct 31.2 L, MCV 83.0, MCH 24.7 L, MCHC 29.8 L, RDW 17.9 H, Plt Count 505 H, MPV 10.4, Immature Gran % (Auto) 0.90 H, Immature Gran # (Auto) 0.19 H, Neutrophils % 91.5 H, Lymphocytes % 3.1 L, Monocytes % 4.5, Eosinophils % 0.0, Basophils % 0.0, Nucleated RBC % 0.0, Neutrophils # 18.9 H, Lymphocytes # 0.65 L, Monocytes # 0.9, Eosinophils # 0.0, Absolute Basophils 0.0 12/19/18 05:50: Sodium 130 L, Plasma Sodium 131, Potassium 4.5, Chloride 94 L, Carbon Dioxide 30.1, Anion Gap 10.4, BUN 40 H D, Creatinine 1.01, Est GFR (Non- Af Amer) 75, BUN/Creatinine Ratio 39.6 H, Random Glucose 170 H, Calcium 9.0, Calcium Adj for Albumin 10.3 H, Total Bilirubin 0.2, AST 45, ALT 33, Alkaline Phosphatase 84, Total Protein 7.9, Albumin 2.0 L Discharge Location: Home Disposition: Home self-care Condition: Fair Discharge Activity: Activity as tolerated Discharge Diet: Low fat/chol Additional Patient Instructions (free text): -Please make TCM appointment unless group home discharge, or if following up with outside provider. Thank you! Saundra @ [facility] [id number]. Prescriptions (Any new or edited meds): Cefdinir 300 mg PO BID #8 cap Azithromycin [Zithromax] 250 mg PO DAILY #3 tab Complete Home Medications List: Complete Home Medication List: Aspirin [Aspirin EC] 81 mg PO HS 06/20/17 Ezetimibe [Zetia] 10 mg PO HS 06/20/17 Levothyroxine Sodium [Synthroid] 75 mcg PO DAILY 06/20/17 Metoprolol Succinate [Toprol Xl] 100 mg PO BID 06/20/17 Apixaban [Eliquis] 5 mg PO BID 12/15/18 Ferrous Sulfate [Iron] 325 mg PO TID 12/15/18 Furosemide [Lasix] 20 mg PO BID 12/15/18 Oxybutynin Chloride [Ditropan] 5 mg PO HS 12/15/18 Potassium Chloride [K-Tab ER] 10 meq PO DAILY 12/15/18 Azithromycin [Zithromax] 250 mg PO DAILY #3 tab 12/19/18 Cefdinir 300 mg PO BID #8 cap 12/19/18
[2018-12-19 12:59] VITALS: BP 98/50
== END 2018-12-19 13:10 | disposition home or self-care (01) | DRG 194 ==
LOC: ER 16:32 → MS 18:23
PROVIDERS: ADMIT Family Medicine; ATTEND Family Medicine
DX: E03.9 Hypothyroidism, unspecified; R93.89 Abnormal findings on diagnostic imaging of other specified body structures; I11.9 Hypertensive heart disease without heart failure; Z86.73 Personal history of transient ischemic attack (TIA), and cerebral infarction without residual deficits; D50.8 Other iron deficiency anemias; I27.20 Pulmonary hypertension, unspecified; J15.3 Pneumonia due to streptococcus, group B; R53.1 Weakness; I25.810 Atherosclerosis of coronary artery bypass graft(s) without angina pectoris; R63.0 Anorexia; Z87.891 Personal history of nicotine dependence; I11.0 Hypertensive heart disease with heart failure; Z95.1 Presence of aortocoronary bypass graft; J44.9 Chronic obstructive pulmonary disease, unspecified; I48.20 Chronic atrial fibrillation, unspecified; I50.32 Chronic diastolic (congestive) heart failure; M54.2 Cervicalgia; E88.09 Other disorders of plasma-protein metabolism, not elsewhere classified; Z23 Encounter for immunization
CPT/HCPCS: 36415; 71010; 71020; 71045; 71046; 80053; 81001; 82607; 82746; 83519; 83540; 83550; 83605; 83735; 83880; 84145; 84443; 84484; 85007; 85025; 85045; 85060; 85652; 86140; 86738; 87040; 90686; 93005; 93306; 94640; 94664; 96374; 96375; 97110; 97116; 97162; 97530; 99285